=== PATIENT | female | born 1960 | race Two or more races ===

== ENCOUNTER 2016-04-29 21:04 | Emergency (ER) | payer BC, OTHER ==
[2016-04-29] MEDS ORDERED: ASPIRIN 81 MG TABLET, CHEWABLE PO ONE (21:15)
--- NOTE | 2016-04-29 21:31 | ER Document Report ---
ED Medical Screen (RME) - General Stated Complaint: CHEST PAIN Time seen by provider: 21:31 Mode of Arrival: Ambulatory Information source: Patient Notes: 55-year-old nonsmoker, nonhypertensive, nondiabetic, non-hyperlipidemic is no family history of coronary artery disease female complaining of left sided constant retrosternal chest pain that started while she was cooking 11 AM this morning. The pain radiates into her arm and shoulder that comes and goes. Since the deep breath. No history of PE. She does not take hormones. No leg pain. - Related Data Allergies/Adverse Reactions: acetaminophen [From Percocet] Allergy (Verified 04/29/16 21:32) oxycodone [From Percocet] Allergy (Verified 04/29/16 21:32) Physical Exam - Vital signs Vitals: Temp Pulse BP Pulse Ox 97.5 F 59 L 129/77 H 99 04/29/16 21:17 04/29/16 21:17 04/29/16 21:17 04/29/16 21:17 Course - Vital Signs Vital signs: Temp Pulse Resp BP Pulse Ox 97.5 F 59 L 129/77 H 99 04/29/16 21:17 04/29/16 21:17 04/29/16 21:17 04/29/16 21:17
--- NOTE | 2016-04-29 21:31 | ER Document Report ---
ED Medical Screen (RME) - General Stated Complaint: CHEST PAIN Time seen by provider: 21:31 Mode of Arrival: Ambulatory Information source: Patient Physical Exam - Vital signs Vitals: Temp Pulse BP Pulse Ox 97.5 F 59 L 129/77 H 99 04/29/16 21:17 04/29/16 21:17 04/29/16 21:17 04/29/16 21:17 Course - Vital Signs Vital signs: Temp Pulse Resp BP Pulse Ox 97.5 F 59 L 129/77 H 99 04/29/16 21:17 04/29/16 21:17 04/29/16 21:17 04/29/16 21:17
[2016-04-29 22:04] LABS: ABSOLUTE BASOPHILS # (AUTO) 0.1 10^3/uL (0.0-0.2); ABSOLUTE EOSINOPHILS # (AUTO) 0.2 10^3/uL (0.0-0.6); ABSOLUTE LYMPHOCYTES (AUTO) 3.3 10^3/uL (0.5-4.7); ABSOLUTE NEUT (AUTO) 5.3 10^3/uL (1.7-8.2); BASOPHILS % (AUTO) 1.3 % (0-2); EOSINOPHILS % (AUTO) 2.3 % (0-6); HEMATOCRIT 38.2 % (36.0-47.0); HGB HCT DIFFERENCE 0.8; LYMPHOCYTES % (AUTO) 33.2 % (13-45); MEAN CORPUSCULAR HEMOGLOBIN 32.8 pg (27.0-33.4); MEAN CORPUSCULAR HGB CONC 34.1 g/dL (32.0-36.0); MEAN CORPUSCULAR VOLUME 96 fl (80-97); MONOCYTES % (AUTO) 10.2 % (3-13); RED BLOOD COUNT 3.97 10^6/uL (3.72-5.28); RED CELL DISTRIBUTION WIDTH 12.7 % (11.5-14.0)
[2016-04-29 22:29] LABS: ALANINE AMINOTRANSFERASE 43 U/L (9-52); ALBUMIN 4.3 g/dL (3.5-5.0); ALKALINE PHOSPHATASE 79 U/L (38-126); ANION GAP 12 (5-19); ASPARTATE AMINO TRANSFERASE 86 U/L (14-36); BILIRUBIN,TOTAL 0.5 mg/dL (0.2-1.3); BLOOD UREA NITROGEN 24 mg/dL (7-20); CALCIUM 9.6 mg/dL (8.4-10.2); CARBON DIOXIDE 27 mmol/L (22-30); CHLORIDE 104 mmol/L (98-107); CREATINE KINASE 110 U/L (30-135); CREATININE RESULT 0.85 mg/dL (0.52-1.25); GLUCOSE 90 mg/dL (75-110); TOTAL PROTEIN 7.9 g/dL (6.3-8.2)
[2016-04-29 22:41] LABS: CREATINE KINASE MB 0.95 ng/mL (<4.55)
--- NOTE | 2016-04-29 22:41 | ER Document Report ---
ED General - General Chief Complaint: Chest Pain Stated Complaint: CHEST PAIN Mode of Arrival: Ambulatory Notes: Patient is a 55-year-old female presents with complaints of chest pain radiated to her left shoulder. She says started when she was cooking. She has no previous history of coronary disease. No family history of coronary disease. She does not smoke. She takes no medications. She is otherwise healthy. Patient says the pain went away when she received aspirin upon arrival to the ER. She says pain is worse when she takes a deep breath. No history of PE or DVT. No recent leg pain or leg swelling. She did have recent allergies 2 days ago with less sneezing. No coughing during that time. No fevers. No other complaints at this time. - Related Data Allergies/Adverse Reactions: acetaminophen [From Percocet] Allergy (Verified 04/29/16 21:32) oxycodone [From Percocet] Allergy (Verified 04/29/16 21:32) Past Medical History - General Information source: Patient - Social History Smoking Status: Never Smoker Frequency of alcohol use: None Drug Abuse: None Family History: Reviewed & Not Pertinent Patient has suicidal ideation: No Patient has homicidal ideation: No Renal/ Medical History: Denies: Hx Peritoneal Dialysis Review of Systems - Review of Systems Notes: My Normal Review Basic REVIEW OF SYSTEMS: CONSTITUTIONAL : Denies fever, chills, or sweats. Denies recent illness. EENT: Denies eye, ear, throat, or mouth pain or symptoms. Denies nasal or sinus congestion. CARDIOVASCULAR: Some chest pain RESPIRATORY: Denies cough, cold, or chest congestion. Denies shortness of breath, difficulty breathing, or wheezing. GASTROINTESTINAL: Denies abdominal pain. Denies nausea, vomiting, or diarrhea. Denies constipation. Last BM: GENITOURINARY: Denies difficulty urinating, painful urination, burning, frequency, or blood in urine. MUSCULOSKELETAL: Denies neck or back pain or joint pain or swelling. SKIN: Denies rash or skin lesions. NEUROLOGICAL: Denies altered mental status or loss of consciousness. Denies headache. Denies weakness or paralysis or loss of use of either side. Denies problems with gait or speech. Denies sensory or motor loss. ALL OTHER SYSTEMS REVIEWED AND NEGATIVE. Physical Exam - Vital signs Vitals: Temp Pulse BP Pulse Ox 97.5 F 59 L 129/77 H 99 04/29/16 21:17 04/29/16 21:17 04/29/16 21:17 04/29/16 21:17 - Notes Notes: General Appearance: Well nourished, alert, cooperative, no acute distress, no obvious discomfort. Vitals: reviewed, See vital signs table. Head: no swelling or tenderness to the head Eyes: PERRL, EOMI, Conjuctiva clear Mouth: No decreasd moisture Throat: No tonsillar inflammation, No airway obstruction, No lymphadenopathy Neck: Supple, no neck tenderness, Chest wall: Mild reproducible pain to palpation of left chest. Lungs: No wheezing, No rales, No rhonci, No accessory muscle use, good air exchange bilaterally. Heart: Normal rate, Regular rythm, No murmur, no rub Abdomen: Normal BS, soft, No rigidity, No abdominal tenderness, No guarding, no rebound, no abdominal masses, no organomegaly Extremities: strength 5/5 in all extremities, good pulses in all extremities, no swelling or tenderness in the extremities, no edema. Skin: warm, dry, appropriate color, no rash Neuro: speech clear, oriented x 3, normal affect, responds appropriately to questions. Course - Vital Signs Vital signs: Temp Pulse Resp BP Pulse Ox 97.5 F 59 L 16 129/77 H 99 04/29/16 21:17 04/29/16 21:17 04/29/16 21:43 04/29/16 21:17 04/29/16 21:17 - Laboratory Result Diagrams: 04/29/16 21:54 04/29/16 21:54 Laboratory results interpreted by me: 04/29/16 04/29/16 21:45 21:54 D-Dimer 0.67 H BUN 24 H AST 86 H - EKG Interpretation by Me Additional EKG results interpreted by me: 04/29/16 22:40 EKG is reviewed and interpreted by me. EKG shows normal sinus rhythm with rate of [address] segment elevation or depression. No ischemic T-wave inversions. NE interval, QRS duration, QTC levels are within normal range. No old EKG available for comparison. - Transfer of Care Notes: 04/30/16 03:08 Patient has remained chest pain-free here in the ER other than when I palpate over her chest or if she takes a deep breath. This makes it unlikely be cardiac. Her EKG is normal. She has no risk factors other than age. Her troponin and delta troponin negative. Being that she is over the age of 50 we will still refer her to a dairy associate for outpatient stress testing. I do not feel that she needs admission at this time being that she is low risk and looks well. I encourage her to return to ER immediately if she has recurrent chest pain, difficulty breathing, or feels unwell. Patient agrees with plan and will be discharged home. Dictation of this chart was performed using voice recognition software; therefore, there may be some unintended grammatical errors. Discharge - Discharge Clinical Impression: Chest pain Qualifiers: Chest pain type: unspecified Qualified Code(s): R07.9 - Chest pain, unspecified Condition: Good Disposition: HOME, SELF-CARE Additional Instructions: CT scan was performed to rule out a blood clot in your lungs. This was negative. Your chest pain is worse with taking a deep breath which makes it unlikely to be coming from your heart; however, there is still always a possibility you could have a small blockage in one of your coronary vessels that is leading to the pain. Again this is unlikely but is still always possible. I have therefore referred you to the dairy associate. His name is Dr. Ba. Please call his office Sunday morning and inform them that you were seen in the ER for chest pain and that we have referred you to him for reevaluation and possible outpatient stress test. Please return to ER immediately if you have recurrent chest pain, difficulty breathing, or feel unwell. Please take the 81 mg of aspirin every day. Referrals: JOSEFA CHILEL MD [ACTIVE STAFF] - 05/01/16
[2016-04-29 22:42] LABS: TROPONIN I < 0.012 ng/mL
[2016-04-29] MEDS ORDERED: NORMAL SALINE 1000 ML 1,000 ML IV ONE (23:26)
[2016-04-30 03:52] VITALS: BP 122/63
--- NOTE | 2016-04-30 09:37 | EKG REPORT ---
SEVERITY:- NORMAL ECG - SINUS RHYTHM : Confirmed by: Duy Ralph MD 30-Apr-2016 09:36:10
== END 2016-04-30 03:50 | disposition home or self-care (01) ==
LOC: ER 21:04
DX: R07.9 Chest pain, unspecified (principal); Z88.6 Allergy status to analgesic agent; Z88.5 Allergy status to narcotic agent
CPT/HCPCS: 36415; 71020; 71275; 80053; 82550; 82553; 84484; 85025; 85379; 93005; 93010; 96360; 99285